=== PATIENT | female | born 1945 | race Caucasian/White ===

== ENCOUNTER 2022-12-11 13:38 | Outpatient (CLI) | payer MEDICARE | END 2022-12-11 13:39 | disposition home or self-care (01) | LOC: CSHMRI 13:38 | PROVIDERS: ATTEND Specialist | DX: M25.511 Pain in right shoulder (principal); M51.16 Intervertebral disc disorders with radiculopathy, lumbar region; M47.816 Spondylosis without myelopathy or radiculopathy, lumbar region; Z98.890 Other specified postprocedural states | CPT/HCPCS: 72148 ==